=== PATIENT | male | born 1960 | race Caucasian/White ===

== ENCOUNTER 2020-07-21 10:28 | Inpatient (IN) | payer OTHER ==
[~2020-07-21] VITALS: Ht 172.7 cm; Wt 93.0 kg
[2020-07-21 11:26] LABS: BASOPHILS 0.8 % (0-2); HEMATOCRIT 22.8 % (42.0-54.0); LYMPHOCYTES 22.7 % (15-50); MCH 37.7 pg (26.0-34.0); MCHC 34.9 g/dL (31.0-37.0); MEAN PLATELET VOLUME 6.2 fL (7.4-10.4); MONOCYTES 14.3 % (2-11); NEUTROPHILS 61.2 % (40-80); PLATELET COUNT 150 10x3/uL (130-400); RBC 2.11 10x6/uL (4.20-6.10); RDW 14.4 % (11.5-14.5); WBC 3.7 10x3/uL (4.8-10.8)
[2020-07-21 11:33] LABS: CALC OSMOLALITY 266 mosm/kg (275-300); CALCIUM 8.2 mg/dL (8.5-10.1); CARBON DIOXIDE 22.3 mmol/L (21.0-32.0); CHLORIDE - SERUM 103 mmol/L (98-107); CREATININE - SERUM 1.1 mg/dL (0.6-1.3); GLUCOSE 63 mg/dL (74-106); POTASSIUM - SERUM 4.5 mmol/L (3.5-5.1); SODIUM 134 mmol/L (136-145); UREA NITROGEN 15 mg/dL (7-18); eGFR NON AFRICAN AMERICAN 72 mL/min (90-120)
[2020-07-21 11:42] LABS: ALBUMIN 2.6 g/dL (3.4-5.0); ALKALINE PHOSPHATASE 134 U/L (30-120); ALT (SGPT) 20 U/L (10-68); AMYLASE - SERUM 60 U/L (25-115); BILIRUBIN - TOTAL 2.27 mg/dL (0.2-1.3); LIPASE 339 U/L (73-393); PROTEIN - SERUM 6.1 g/dL (6.4-8.2); TROPONIN-I < 0.017 ng/mL (0.000-0.060)
[2020-07-21 12:03] LABS: BILIRUBIN NEGATIVE (NEGATIVE); KETONE TRACE mg/dL (< 1+); NITRITE NEGATIVE (NEGATIVE); UROBILINOGEN NORMAL mg/dL (< 2)
[2020-07-21 12:36] LABS: BACTERIA FEW HPF (<MOD); SQUAMOUS EPITHELIAL <1 HPF (0-4); WHITE CELLS - URINE 1 HPF (0-1)
[2020-07-21 13:58] LABS: UDS - AMPHET NEGATIVE QUAL (NEGATIVE); UDS - BARB NEGATIVE QUAL (NEGATIVE); UDS - BENZO NEGATIVE QUAL (NEGATIVE); UDS - COCAINE NEGATIVE QUAL (NEGATIVE); UDS - OPIATE NEGATIVE QUAL (NEGATIVE); UDS - PCP NEGATIVE QUAL (NEGATIVE); UDS - THC NEGATIVE QUAL (NEGATIVE)
[2020-07-21 14:22] LABS: INR 1.28 (0.85-1.17); PROTIME 14.8 SECONDS (11.6-15.0)
[2020-07-21] MEDS ORDERED: FUROSEMIDE40 MG PO (17:03)
[2020-07-21] MEDS ORDERED: ZOVIRAX200 MG PO (17:04)
[2020-07-21] MEDS ORDERED: FARXIGA10 MG PO (17:04)
[2020-07-21] MEDS ORDERED: GLYBURIDE5 M1 PO (17:05)
[2020-07-21] MEDS ORDERED: CENTRUM MEN'S1 EACH PO (17:06)
[2020-07-21] MEDS ORDERED: OMEPRAZOLE20 M1 PO (17:06)
[2020-07-21] MEDS ORDERED: COZAAR25 MG PO (17:08)
[2020-07-21] MEDS ORDERED: ASPIRIN325 MG PO (17:09)
[2020-07-21 17:36] VITALS: BP 115/72; BMI 31.2
--- NOTE | 2020-07-21 19:00 | NUR ---
BEDSIDE REPORT RECEIVED AND CARE OF PT ASSUMED. PT RESTING IN SUPINE POSITION WITH EYES CLOSED. IV TO LEFT HAND SALINE LOCKED.
[2020-07-21 20:00] VITALS: BP 111/66; BP 113/71
--- NOTE | 2020-07-21 22:11 | NUR ---
PT SLEEPING ON LEFT SIDE WITH EYES CLOSED AND EASY RESPIRATIONS. CALL LIGHT WITHIN REACH.
[2020-07-22] VITALS: BP 107/52
[2020-07-22 04:00] VITALS: BP 101/44
[2020-07-22 05:57] LABS: HEMATOCRIT 20.7 % (42.0-54.0); MCH 38.2 pg (26.0-34.0); MCHC 35.3 g/dL (31.0-37.0); MCV 108.2 fL (80.0-100.0); MEAN PLATELET VOLUME 6.5 fL (7.4-10.4); RDW 14.7 % (11.5-14.5)
[2020-07-22 06:11] LABS: INR 1.35 (0.85-1.17); PROTIME 15.5 SECONDS (11.6-15.0)
[2020-07-22 06:31] LABS: HEMOGLOBIN 7.3 g/dL (13.5-17.5); PLATELET COUNT 116 10x3/uL (130-400); RBC 1.91 10x6/uL (4.20-6.10); WBC 2.6 10x3/uL (4.8-10.8)
[2020-07-22 06:42] LABS: ALBUMIN 2.2 g/dL (3.4-5.0); ALKALINE PHOSPHATASE 111 U/L (30-120); ALT (SGPT) 15 U/L (10-68); BILIRUBIN - TOTAL 1.94 mg/dL (0.2-1.3); CARBON DIOXIDE 21.8 mmol/L (21.0-32.0); CHLORIDE - SERUM 110 mmol/L (98-107); MAGNESIUM - SERUM 1.9 mg/dL (1.8-2.4); PHOSPHOROUS 3.2 mg/dL (2.5-4.9); POTASSIUM - SERUM 4.2 mmol/L (3.5-5.1); PROTEIN - SERUM 5.2 g/dL (6.4-8.2); SODIUM 141 mmol/L (136-145); UREA NITROGEN 12 mg/dL (7-18)
[2020-07-22 06:44] LABS: CALC OSMOLALITY 280 mosm/kg (275-300); CREATININE - SERUM 0.8 mg/dL (0.6-1.3); GLUCOSE 107 mg/dL (74-106); eGFR NON AFRICAN AMERICAN > 90 mL/min (90-120)
--- NOTE | 2020-07-22 07:27 | NUR ---
PATIENT H&H IS 7.3 AND 20.7 THIS MORNING. PM NURSE Charlie GREENE RN CALLED AND SPOKE TO BRODERICK GARVEY WHO STATED TO CHECK WITH DR CAPPS FOR ORDERS. CONTINUE WITH PLAN OF CARE
--- NOTE | 2020-07-22 07:55 | NUR ---
RECEIVED WRITTEN ORDERS FROM DR CAPPS TO TRANSFUE 2 UNITS, ORDERED TYPE AND CROSS. BORIS WITH PLAN OF CARE
[2020-07-22 09:07] VITALS: BP 91/57
--- NOTE | 2020-07-22 11:49 | NUR ---
PATIENT DAUGHTER AT BEDSIDE REQUESTING TO SPEAK TO JAQUELINE AND IF PATIENT WILL BE DC TODAY, WENT OVER TEVIN OF CARE TO REPLETE BLOOD, STARTED FIRST UNIT AT 1115 PT BP IS 73/42. CONTINUE WITH PLAN OF CARE
[2020-07-22 12:35] LABS: % SATURATION 28 % (15-55); IRON 50 ug/dl (35-150); TOTAL IRON BIND CAPACITY 176 ug/dl (260-445); UNSAT IRON BIND CAPACITY 126 ug/dl (150-375)
[2020-07-22 13:36] LABS: LYMPHOCYTES 21 % (15-50); MONOCYTES 12 % (2-11); NEUTROPHILS 64 % (40-80); PLATELET ESTIMATE NORMAL
[2020-07-22 14:13] VITALS: Ht 172.7 cm; Wt 93.0 kg
--- NOTE | 2020-07-22 16:37 | NUR ---
I have reviewed this patient and I concur with the Shift Assessment completed by the Licensed Practical Nurse today this shift.
[2020-07-22] MEDS ORDERED: ALDACTONE100 MG PO (17:02)
[2020-07-22] MEDS ORDERED: CHRONULAC30 ML PO (17:03)
[2020-07-22 18:45] LABS: BASOPHILS 1.1 % (0-2); EOSINOPHILS 2.4 % (0-7); LYMPHOCYTES 27.2 % (15-50); MCH 36.4 pg (26.0-34.0); MCHC 35.2 g/dL (31.0-37.0); MONOCYTES 10.2 % (2-11); NEUTROPHILS 59.1 % (40-80); PLATELET COUNT 121 10x3/uL (130-400); RDW 19.7 % (11.5-14.5); RETIC 3.34 % (0.45-2.28)
[2020-07-22 18:46] LABS: HEMATOCRIT 27.7 % (42.0-54.0); HEMOGLOBIN 9.8 g/dL (13.5-17.5); MCV 103.2 fL (80.0-100.0); RBC 2.68 10x6/uL (4.20-6.10); WBC 3.5 10x3/uL (4.8-10.8)
[2020-07-23 14:11] LABS: SPE - A/G RATIO 0.9 (0.7-1.7); SPE - ALBUMIN 2.8 g/dL (2.9-4.4); SPE - ALPHA-1 GLOBULIN 0.4 g/dL (0.0-0.4); SPE - ALPHA-2 GLOBULIN 0.7 g/dL (0.4-1.0); SPE - BETA GLOBULIN 0.9 g/dL (0.7-1.3); SPE - M-SPIKE Not Observed g/dL (Not Observed); SPE - TOTAL PROTEIN 5.8 g/dL (6.0-8.5)
--- NOTE | 2020-07-23 16:26 | NUR ---
CALLED RX IN TO [facility] FOR SPIRONOLACTONE 100MG DAILY WELL LACTULOSE FOR PATIENT. CONTINUE WITH PLAN OF CARE
[2020-07-24 11:11] LABS: HEPATITIS C ANTIBODY <0.1 (0.0-0.9)
[2020-07-24 13:12] LABS: ANA REFLEX - DIRECT Negative (Negative)
== END 2020-07-22 18:57 | disposition home or self-care (01) | DRG 841 ==
LOC: D.ER 10:28 → D.MS 14:18
PROVIDERS: Emergency Medicine; Family Medicine; Internal Medicine Gastroenterology; Internal Medicine Hematology & Oncology; ADMIT Family Medicine; ATTEND Family Medicine
DX: C90.00 Multiple myeloma not having achieved remission (principal); R18.8 Other ascites; E11.9 Type 2 diabetes mellitus without complications; I10 Essential (primary) hypertension; F10.10 Alcohol abuse, uncomplicated; K21.9 Gastro-esophageal reflux disease without esophagitis